=== PATIENT | female | born 1980 | race Caucasian/White ===

== ENCOUNTER 2017-12-06 20:29 | Emergency (ER) | payer MEDICAID ==
[~2017-12-06] VITALS: Ht 157.5 cm; Wt 86.5 kg
[~2017-12-06 20:29] MED LIST: ACET500C40 PO; NAPR-56 PO; ONDA8TAB6 PO
[2017-12-06] MEDS ORDERED: ketorolac trometh inj. 60 MG/2 ML VIAL IM ONE (21:20)
[2017-12-06] MEDS ORDERED: HYDROcodone/acetaminophen 10/325mg tab PO ONE (21:20)
[2017-12-06 21:32] VITALS: BP 114/58
[2017-12-06] MEDS ORDERED: IBUP-1984 PO (21:36)
[2017-12-06] MEDS ORDERED: HYDR-565 PO (21:36)
== END 2017-12-06 21:53 | disposition home or self-care (01) ==
LOC: ER 20:30
DX: M54.41 Lumbago with sciatica, right side (principal); X50.0XXA Overexertion from strenuous movement or load, initial encounter; Y93.89 Activity, other specified; Y92.69 Other specified industrial and construction area as the place of occurrence of the external cause; Y99.9 Unspecified external cause status
CPT/HCPCS: 96372; 99283; J1885

== ENCOUNTER 2017-12-18 20:59 | Emergency (ER) | payer MEDICAID ==
[~2017-12-18] VITALS: Ht 154.9 cm; Wt 84.1 kg
[~2017-12-18 20:59] MED LIST changes: +HYDR-565 PO; +IBUP-1984 PO
[2017-12-18] MEDS ORDERED: orphenadrine citrate 60mg/2ml inj. IM ONE (23:20)
[2017-12-18] MEDS ORDERED: ketorolac trometh inj. 60 MG/2 ML VIAL IM ONE (23:20)
[2017-12-18 23:37] VITALS: BP 121/64
== END 2017-12-18 23:38 | disposition home or self-care (01) ==
LOC: ER 21:00
DX: M54.31 Sciatica, right side (principal); G89.29 Other chronic pain; R20.0 Anesthesia of skin
CPT/HCPCS: 96372; 99284; J1885; J2360

== ENCOUNTER 2018-01-21 17:56 | Emergency (ER) | payer MEDICARE, MEDICAID ==
[~2018-01-21] VITALS: Ht 157.5 cm; Wt 82.0 kg
[~2018-01-21 17:56] MED LIST changes: -HYDR-565 PO; -IBUP-1984 PO
[2018-01-21] MEDS ORDERED: ketorolac trometh inj. 60 MG/2 ML VIAL IM ONE (18:35)
[2018-01-21] MEDS ORDERED: diazepam 5mg tablet PO ONE (18:35)
[2018-01-21] MEDS ORDERED: VAL5T PO (18:35)
[2018-01-21 18:46] VITALS: BP 162/57
== END 2018-01-21 18:47 | disposition home or self-care (01) ==
LOC: ER 17:56
DX: M54.5 Low back pain (principal); G89.29 Other chronic pain; Z79.899 Other long term (current) drug therapy
CPT/HCPCS: 96372; 99283; J1885

== ENCOUNTER 2018-01-31 21:31 | Emergency (ER) | payer MEDICARE, MEDICAID ==
[~2018-01-31] VITALS: Ht 157.5 cm; Wt 79.1 kg
[~2018-01-31 21:31] MED LIST changes: +VAL5T PO
[2018-01-31 21:33] VITALS: BP 152/100
[2018-01-31 23:19] LABS: URINE HCG NEGATIVE (NEG)
[2018-02-01] MEDS ORDERED: dexamethasone sod phosphate 10mg/ml inj PO STA (00:32)
[2018-02-01] MEDS ORDERED: ketorolac trometh inj. 60 MG/2 ML VIAL IM ONE (00:35)
== END 2018-02-01 00:54 | disposition home or self-care (01) ==
LOC: ER 21:32
DX: M54.31 Sciatica, right side (principal); G89.29 Other chronic pain; Z79.899 Other long term (current) drug therapy
CPT/HCPCS: 81025; 96372; 99283; J1100; J1885